=== PATIENT | male | born 1945 ===

== ENCOUNTER 2018-06-10 05:35 | Day surgery (SDC) | payer OTHER ==
[~2018-06-10 05:35] MED LIST: ATORVASTATIN CA80 MG PO; FOLTX TABLET1 EACH PO; JANUMET XR 1001 EACH PO; LISINOPRIL40 MG PO; TRICOR48 MG PO; VITAMIN D1000 UNIT PO
== END 2018-06-10 10:10 | disposition home or self-care (01) ==
LOC: CIR.AMB 05:35
DX: M67.843 Other specified disorders of tendon, right hand (principal)